=== PATIENT | female | born 1955 | race Caucasian/White ===

== ENCOUNTER 2023-09-13 14:21 | Emergency (ER) | payer BC, SELFPAY ==
[2023-09-13 14:36] VITALS: BP 156/97; PULSE 86; RESP 16; TEMP 36.2; O2SAT 98; BMI 23.3
[2023-09-13] MEDS: lidocaine HCL 2 % MULTIDOSE 20 ML VIAL INJECTION (14:50)
--- OUTSIDE RECORDS SUMMARY | 2023-09-13 14:51 | XMS_ITS | Encounter Summary ---
Author Organization [facility] Address [address], [place] [address] Care Team Providers Care Drier Tender Name Role Phone Princess Mckeon MD Primary Care Provider [phone]- [phone] Reason for Referral * Consult/Transfer Care (Routine) - New Request Specialty Diagnoses / Procedures Referred By Rylee kennedy Referred To Contact Diagnoses Atypical nevus Anusha Sheth MD [address] [place] [address] Referral ID Status Reason Start Date Expiration Date V isits Requested Visits Authorized [id number] New Request 06/02/2023 08/31/2024 1 1 Scheduling Instructions Your provider has recommended an appointment with [facility] Plastic Surgery. You may call [phone] for help scheduling your appointment. We suggest you call your health insurance company about your coverage and benefits for this appointment. Question Answer Appointment Urgency? Non-Urgent Reason for visit? re-excision of AJMP - on the left lower leg posterior ON INVESTIGATOR Encounter Details Date Type Department Care Team (Late st Contact Info) Description 06/02/2023 Notes/Orders [facility] Dermatology [address], [address] [place] [address] Anusha Sheth MD [address] [place] [address] Atypical nevus (Primary Dx) Social History Tobacco Use Types Packs/Day Years Used Date Smoking Tobacco: Never Smokeless Tobacco: Never Alcohol Use Standard Drinks/Week Comments Yes 11 (1 standard drink = 0.6 oz pure alcohol) 1-2 glasses of wine wiith dinner PHQ-2 Answer Date Recorded PHQ-2 Score 0 03/21/2022 Financial Resource Strain Answer Date R ecorded Is it hard for you to pay fo r the very basics like food, housing, medical care or heating? No 03/03/2023 Food Insecurity Answer Date Recorded Does your food run out before you have the money to buy more? No 03/03/2023 Transportation Needs Answer Date Record ed Does a lack of transportatio n keep you from your medical appointments or from getting your medications? No 023 Sex and Gender Information Value Date Recorded Sex Assigned at Not on file Gender Identity Not on file Sexual Orientation Choose not to disclose 2020 6:35 PM CDT documented as of this encounter Plan of Treatment Upcoming Encounters Date Type Department Care Team (Late st Contact Info) Description 05/25/2024 10:15 AM PERSON INVESTIGATOR Appointment [facility] [address] [place] [address] Tanvi Sarabia MD [address] [place] [address] Scheduled Referrals Name Type Priority Associated Diagnoses Orde r Schedule Plastic Surgery Consult-Adult/Peds Referral Routine Atypical nevus Ordered: 06/02/2023 documented as of this encounter Visit Diagnoses Diagnosis Atypical nevus- Primary Benign neoplasm of skin, site unspecified documented in this encounter Care Teams Drier Tender Relationship Specialty Start Date End Date Princess Mckeon MD [address] [place] [phone] PCP - General 03/02/13 documented as of this encounter
--- OUTSIDE RECORDS SUMMARY | 2023-09-13 14:51 | XMS_ITS | Encounter Summary ---
Author Organization [facility] Address [address] [address] Care Team Providers Care Inventory Auditor Name Role Phone Princess Mckeon MD Primary Care Provider +1- [phone] Encounter Details Date Type Department Care Team (Late st Contact Info) Description 07/20/2023 Notes/Orders [facility] Center Gastroenterology [address] [place] [address] Camila Perkins MD [address] [place], [place] [id number] Social History Tobacco Use Types Packs/Day Years [...] st Contact Info) Description 05/25/2024 10:15 AM CARDIAC CATH TECH Appointment [facility] [address] [place] [address] Tanvi Sarabia MD [address] [place] [address] documented as of this encounter Visit Diagnoses Not on filedocumented in this encounter Care Teams Inventory Auditor Relationship Specialty Start Date End Date Princess Mckeon MD [address] [place] [phone] PCP - General 03/02/13 documented as of this encounter
--- OUTSIDE RECORDS SUMMARY | 2023-09-13 14:51 | XMS_ITS | Encounter Summary ---
Author Organization [facility] Address [address], [place] [address] Care Team Providers Care Phd Internship Name Role Phone Princess Mckeon MD Primary Care Provider [phone]- [phone] Reason for Visit * Reason Comments Procedure Excision lesion L an kle * Consult/Transfer Care (Routine) - New Request Specialty Diagnoses / Procedures Referred By Rylee kennedy Referred To Contact Diagnoses Atypical nevus Anusha Sheth MD [address] [place] [id number] Referral ID Status Reason Start Date Expiration Date V isits Requested Visits Authorized [id number] New Request 06/02/2023 08/31/2024 1 1 Encounter Details Date Type Department Care Team ([facility] st Contact Info) Description 07/06/2023 10:30 AM CDT Office Visit [facility] [address], [address] [place], [place] [phone] Kurt Langley MD [address] [place] [address] 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 Wound Care Instructions After a Skin Biopsy or Excision FOLLOW UP: No need for clinic follow up. TREATMENT PLAN: If the wound begins to bleed, apply firm, continual pressure to the area for 15- 20 minutes. Keep the wound dry and covered for 24 hours. The wound was closed with dissolvable sutures. Your skin may have a puckered appearance while they are dissolving over the next few weeks. Steri strips (paper tape) were placed on your incision; please keep them in place until your followup for suture removal or until the fall off on their own. If Steri strips start to peel off on the edges, you may trim them. When Steri strips become loose, you may gently remove them. May rep-apply if you desire to do so. After removing the initial bandage, clean the area daily with soap and water and pat dry thoroughly. Do not soak your incision (no dishes, hot tubs, no swimming pools). Do not apply creams or lotionsto your incision until area is healed with no scabbing or open areas. Cover the area with a clean bandage; if desire to do so. Always change the bandage if it becomes wet. If the bandage becomes wet, it is more apt to become infected. If a specimen has been sent to the pathology lab. We will call you with results in 7-10 business days. Avoid strenuous activities for 24-72 hours. Recommend to elevate the foot as much as you can for the next 48 hours. Elevation can help reduce pain and swelling. Please be mindful of any range of motion of the ankle for the next 2 weeks. Julio Cesar wrap or compression to the area Inspect the wound every day for infection. Signs of infection are: Cloudy or colored (yellow/green) drainage from wound. Redness extending away for the incision (a small amount at the edge is normal), or red streaks extending from the incision. Increasing tenderness Swelling Fever or chills If you notice signs of infection, or have questions, call our office at [phone]. For minor discomfort, you may take Tylenol, Motrin or Advil, as well as apply ice to the area for 10-15 minutes per hour and/or elevating the area. SCAR TREATMENTS Silicone Scar Sheets and Scar Serum You may begin using ScarAway?? (or a similar silicone product) as soon as the skin is healed and there is no oozing or crusting in the area. Treatment with silicone products for post-surgical scars may typically begin approximately 1-2 weeks after stitches are removed or when cleared by your physician or surgeon for use. Research suggests that silicone acts to hydrate scar tissue, which in turn works to soften the scar, reducing its development and causing it to fade. Treatment duration will vary from person to person and from scar to scar, depending on many factors. Recommended Minimum treatment time is 60-90 days. Larger and older scars may take longer, therefore continued use is recommended if improvement is still seen after the initial 90 days. Individual results will vary. Scar Recovery Gel by [employer] is another scar care option. This formulized gel helps hydrate andfade scars by decreasing inflammation at the site. It is recommended that you apply a thin coat at least twice daily. This product can be purchased at our [facility] Plastic & Hand Surgery and Cosmetic Surgery clinics. Pure Vitamin E Oil You can buy a bottle of Vitamin E Oil or you may also buy Vitamin E Gel Caps. Both should be applied topically to scar areas. *Test on a small area of skin first. These are all ways to help promote scar maturity. CARING FOR YOUR SCAR(S) You must wear sunscreen daily (yes, even on a cloudy winter day) to protect your skin from damagingand harmful ultraviolet or UV rays. UV rays cause premature skin aging, skin cancer, and sun-related skin diseases. We recommend using sunscreen with a SPF rating of 30 or higher. Your sunscreen should contain 5%+ zinc oxide. Apply sunscreen 15-30 minutes before expected prolonged direct sun exposure, reapply sunscreen every 2 hours. How to use Sunscreen One ounce, enough to fill a shot glass, is considered the amount needed to cover the exposed areas of the body. Adjust the amount of sunscreen applied depending on body size. Apply sunscreen to dry skin 15 minutes BEFORE going outdoors. To protect your lips, apply a lip balm or lipstick that contains Zinc Oxide with an SPF of 30 or higher. Physical blocks to sun rays including clothing and hats can also be an effective method of blockingUV rays. In general avoiding prolonged sun exposure is the best protection. After a surgical procedure, the incision is very sensitive to UV rays and we recommend additional protection with sunscreen above what you usually use for up to 12 months. This can help to prevent hyperpigmentation (darkening) of the scar A few sunscreens we have available in the clinic are EltaMD and [employer]cience. These are safe, broad-spectrum UV protection in natural zinc-based and are noncomedogenic, sensitivity-free, fragrance-free and paraben-free. EltaMD and [employer]orescience sunscreen may also be purchased in the Plastic and Hand Surgery clinic at [facility] ([phone]), or at the [facility] Plastic Surgery clinic in [place] ([phone]). Elta[employer] sunscreens are designed for the following skin types: UV Facial Lotion SPF 30: dry or mature skin UV Daily SPF 40: sheer moisturizing UV Daily SPF 40 tint: sheer moisturizing UV Shield SPF 45: oily skin UV Sport SPF 50: outdoor activities UV PURE: Chemical free for face and body UV Aero: Continuous spray for outdoor activities [employer] sunscreens are high performing mineral sunscreen brushes that are self-dispensing andeasy to use for all skin types. 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 Risks and benefits of the procedure were reviewed with the patient which include but not limited to bleeding, poor wound healing/scarring, and requirement for re-excision. PROCEDURE: The lesion (7 mm) was identified on the patient's left lateral ankle and marked with at least 2 mm of additional margins in all dimensions. The total size of the excised lesion with margins was 11 x 30 mm. This area was anesthetized with 1% lidocaine with epinephrine. Adequate time was allowed for hemostasis. The area was then sterilely prepped with chlorhexidine and draped. After ensuring that the patient was adequately numb, the lesion was excised with a 15 blade. Electrocautery was used to control any bleeding. The defect was then closed with 3-0 Monocryl for deep dermal stitches and 4-0 Monocryl for a running subcuticular stitch. The total closure measured 30 mm in the greatest dimension. Kurt Langley MD-PhD documented in this encounter Plan of Treatment Upcoming Encounters Date Type Department Care Team (Late st Contact Info) Description 05/25/2024 10:15 AM EDUCATIONAL INTERPRETER Appointment [place] [address] [place] [address] Tanvi Sarabia MD [address] [place] [id number] documented as of this encounter Procedures Procedure Name Priority Date/Time Associated Diagnosis Comments SURGICAL PATHOLOGY Routine 07/06/2023 11 :54 AM CDT Atypical nevus of left lower leg documented in this encounter Results * Surgical Path (07/06/2023 11:54 AM CDT) Case Report Surgical Pathology ?Case: [id number] ? Authorizing Provider: ??Kurt Langley MD ?Collected: ? 07/06/2023 1154 ? Ordering Location: ? [facility] ? Received: ?07/06/2023 1932 ? Surgeons ? Pathologist: ? Mayelin Kendrick MD ? Specimen: ?Leg, left, lower posterior; suture 12 o'clock ? 07/09/2023 10:42 AM [facility] FINAL DIAGNOSIS A. Skin, Leg, left, lower posterior, re-excision : Central biopsy site changes, narrowly excised, negative for residual atypical junctional melanocytic proliferation 07/09/2023 10:42 AM [facility] Clinical Information lesion Per Dr. Langley's note on 07/06/23, this is a re-excision of an atypical junctional melanocytic proliferation ([id number]). 07/09/2023 10:42 AM [facility] Microscopic Description Microscopic examination is performed. 07/09/2023 10:42 AM [facility] Gross Description A: The specimen is received in formalin and labeled with the patient's name and Leg, left, lower posterior; suture 12 o'clock. The specimen consists of an oriented (stitch at 12:00) 2 x 0.9 cm pale-rojas skin ellipse is excised to a depth of 0.2 cm. The skin surface exhibits a 0.3 x 0.3 cm pink-rojas, crusty lesion on the surface. The lesion comes within 0.1 cm to the 3:00 margin, 0.3 cm to the 9:00 margin, 0.8 cm to the 12:00 tip and 0.9 cm to the 6:00 tip. The 3:00 aspect is inked blue and the 9:00 aspect is inked black. The specimen is serially sectioned entirely and sequentially submitted from 12:00 to 6:00 in 4 cassettes. 1. 12:00 tip 2-3. Remaining serial sections submitted from 12:00 to 6:00 4. 6:00 tip. 07/09/2023 10:42 AM [facility] Embedded Images 07/09/2023 10:42 AM [facility] Tissue SKIN OF KNEE AND/OR LEG AND/OR ANKLE / Unknown Non-blood Collection / Unknown 07/06/2023 11:54 AM CDT 07/06/2023 7:32 PM CDT Comment:per standing Vicente De Luna, BARBERING INSTRUCTOR 07/06/2023, 11:50 AM Kurt Langley MD LAB PATHOLOGY [address] [address], [facility] documented in this encounter Visit Diagnoses Diagnosis Atypical nevus of left lower leg- Primary documented in this encounter Care Teams Phd Internship Relationship Specialty Start Date End Date Princess Mckeon MD [address] [facility] [place] [phone] PCP - General 03/02/13 documented as of this encounter
--- OUTSIDE RECORDS SUMMARY | 2023-09-13 14:51 | XMS_ITS | Encounter Summary ---
Author Organization [facility] Address [address] [place] [address] Care Team Providers Care Campus Chaplain Name Role Phone Princess Mckeon MD Primary Care Provider [phone]- [phone] Encounter Details Date Type Department Care Team (Latest Contact Info) Description 08/05/2023 9:30 AM CDT - 08/05/2023 11:59 PM CDT Hospital Encounter [facility] [address] [place] [address] Camila Perkins MD [address], [place] [id number] Screen for colon cancer (Primary Dx) Discharge Disposition: Home Social History Tobacco Use Types Packs/Day Years [...] PM CDT documented as of this encounter Last Filed Vital Signs Vital Sign Reading Time Taken Comments Blood Pressure 106/68 08/05/2023 10:35 AM CDT Pulse 62 08/05/2023 10:35 AM CDT Temperature 36.2 ??C (97.2 ??F) 08/05/2023 10:13 AM C DT Respiratory Rate 11 08/05/2023 10:35 AM CDT Oxygen Saturation 97% 08/05/2023 10:35 AM CDT Inhaled Oxygen Concentration - - Weight 63.5 kg (140 lb) 08/05/2023 9:00 AM CDT Height - - Body Mass Index 23.66 03/04/2023 2:01 PM LINE FISHER documented in this encounter Discharge Instructions * Attachments The following attachments cannot be sent through Care Everywhere. * Hemorrhoids (Barbadian) * Diverticulosis (Barbadian) * Fiber Foods: General Info (Barbadian) * High-Fiber Diet (Barbadian) documented in this encounter Medications at Time of Discharge Medication Sig Dispensed Refills Start Date End Date Calcium Carbonate-Vitamin D (CALTRATE 600+D OR) Take 300 mg by mouth daily (every 24 hours). 03/28/2014 cholecalciferol (VITAMIND3) 2000 UNITS tablet Take 1 Tablet (2,000 Units) by mouth daily. Glucosamine HCl-MSM (GLUCOSAMINE-MSM OR) Take by mouth. 03/10/2012 documented as of this encounter Progress Notes * Camila Perkins MD - 08/05/2023 9:30 AM CDT CC: Colonoscopy HPI: Patient here for colonoscopy. Clinically asymptomatic. History and Physical PMH: Reviewed PSH: Reviewed Social Hx: Reviewed Allergies: Reviewed Medications: Reviewed Family History: Reviewed Review of Systems: Pertinent ROS done. Exam: Alert, awake and oriented. Vitals: See documentation flowsheet. Pre-Sedation Assessment Head and Neck: Examined Chest: Clear to auscultation. No wheezes or rales. CVS: Regular, rate, rhythm. Abdomen: Abdomen soft, non-tender without masses or organomegaly. Extremities: Examined Hx sedation/anesthesia reaction: No Airway abnormal: No Mallampati Score: 1 ASA: P1 A normal healthy patient Plan: Colonoscopy under moderate sedation Supervising provider: Potential risks and complications of procedure have been discussed with patient. Consent obtained prior to procedure. 08/05/2023, 9:53 AM documented in this encounter Procedure Notes * Camila Perkins MD - 08/05/2023 9:40 AM CDT Patient Name: Carolynn Arvizu Procedure Date: 08/05/2023 9:40 AM Date of : 1955 Age: 68 Gender: Female Note Status: Finalized Instrument Name: 186 Procedure: Colonoscopy Indications: Screening for colorectal malignant neoplasm Providers: Camila Perkins MD, Idalia Smith Patient Profile: 68 y/o F here for 10 year follow up, no FH of colon cancer. Adelina Bowel Prep Referring MD: Medicines: Midazolam 2 mg IV, Fentanyl 100 micrograms IV, Ondansetron 4 mg IV Complications: No immediate complications. Procedure: Pre-Anesthesia Assessment: - Prior to the procedure, a History and Physical was performed, and patient medications and allergies were reviewed. The patient is competent. The risks and benefits of the procedure and the sedation options and risks were discussed with the patient. All questions were answered and informed consent was obtained. Patient identification and proposed procedure were verified by the physician in the procedure room. Mental Status Examination: alert and oriented. Airway Examination: normal oropharyngeal airway and neck mobility. Respiratory Examination: clear to auscultation. CV Examination: normal. Prophylactic Antibiotics: The patient does not require prophylactic antibiotics. Prior Anticoagulants: The patient has taken no anticoagulant or antiplatelet agents. ASA Grade Assessment: I - A normal, healthy patient. After reviewing the risks and benefits, the patient was deemed in satisfactory condition to undergo the procedure. The anesthesia plan was to use moderate sedation / analgesia (conscious sedation). Immediately prior to administration of medications, the patient was re-assessed for adequacy to receive sedatives. The heart rate, respiratory rate, oxygen saturations, blood pressure, adequacy of pulmonary ventilation, and response to care were monitored throughout the procedure. The physical status of the patient was re-assessed after the procedure. After I obtained informed consent, the scope was passed under direct vision. Prior to sedation, patient identity and procedure was reverified. Throughout the procedure, the patient's blood pressure, pulse, and oxygen saturations were monitored continuously. The Colonoscope was introduced through the anus and advanced to the cecum, identified by appendiceal orifice and ileocecal valve. The colonoscopy was performed without difficulty. The patient tolerated the procedure well. The quality of the bowel preparation was excellent. Findings: Hemorrhoids were found on perianal exam. A few small-mouthed diverticula were found in the ascending colon. Non-bleeding internal hemorrhoids were found during retroflexion. The hemorrhoids were mild. Moderate Sedation: Moderate (conscious) sedation was personally administered by the endoscopist. The following parameters were monitored: oxygen saturation, heart rate, blood pressure, and response to care. Total physician intraservice time was 13 minutes. Impression: - Hemorrhoids found on perianal exam. - Diverticulosis in the ascending colon. - Non-bleeding internal hemorrhoids. - No specimens collected. Recommendation: - Repeat colonoscopy in 10 years for surveillance. - High fiber diet Procedure Code(s): --- Professional --- 02867, Colonoscopy, flexible; diagnostic, including collection of specimen(s) by brushing or washing, when performed (separate procedure) G0500, Moderate sedation services provided by the same physician or other qualified health caretaker grounds performing a gastrointestinal endoscopic service that sedation supports, requiring the presence of an independent trained observer to assist in the monitoring of the patient's level of consciousness and physiological status; initial 15 minutes of intra-service time; patient age 5 years or older (additional time may be reported with 16950, as appropriate) Diagnosis Code(s): --- Professional --- Z12.11, Encounter for screening for malignant neoplasm of colon K64.8, Other hemorrhoids K57.30, Diverticulosis of large intestine without perforation or abscess without bleeding CPT copyright 2021 [employer]. All rights reserved. The codes documented in this report are preliminary and upon service center assistant review may be revised to meet current compliance requirements. Attending Participation: MD Camila De Oliveira MD 08/05/2023 10:14:45 AM This report has been signed electronically. Number of Addenda: 0 Note Initiated On: 08/05/2023 9:40 AM documented in this encounter Plan of Treatment Upcoming Encounters Date Type Department Care Team (Late st Contact Info) Description 05/25/2024 10:15 AM LINE FISHER Appointment [facility] [address] [place] [address] Tanvi Sarabia MD [address] [place], [place] [id number] documented as of this encounter Procedures Procedure Name Priority Date/Time Associated Diagnosis Comments COLONOSCOPY Routine 08/05/2023 9:40 AM CDT Screen for colon cancer documented in this encounter Results * COLONOSCOPY [[id number]] (08/05/2023 9:40 AM CDT) 08/05/2023 9:40 AM CDT Narrative GI ([facility]) - 08/05/2023 10:14 AM CDT Instrument Name: 186 Indications: ? Screening for colorectal malignant neoplasm Providers: ? Camila Perkins MD, Sarah Jeffrey, ? Idalia Chavez Patient Profile: ? 68 y/o F here for 10 year follow up, no FH of colon ? cancer. Golytely Bowel Prep Referring MD: ? Medicines: ? Midazolam 2 mg IV, Fentanyl 100 micrograms IV, ? Ondansetron 4 mg IV Complications: ? No immediate complications. Procedure: ? Pre-Anesthesia Assessment: ? - Prior to the procedure, a History and Physical ? was performed, and patient medications and ? allergies were reviewed. The patient is competent. ? The risks and benefits of the procedure and the ? sedation options and risks were discussed with the ? patient. All questions were answered and informed ? consent was obtained. Patient identification and ? proposed procedure were verified by the physician ? in the procedure room. Mental Status Examination: ? alert and oriented. Airway Examination: normal ? oropharyngeal airway and neck mobility. Respiratory ? Examination: clear to auscultation. CV Examination: ? normal. Prophylactic Antibiotics: The patient does ? not require prophylactic antibiotics. Prior ? Anticoagulants: The patient has taken no ? anticoagulant or antiplatelet agents. ASA Grade ? Assessment: I - A normal, healthy patient. After ? reviewing the risks and benefits, the patient was ? deemed in satisfactory condition to undergo the ? procedure. The anesthesia plan was to use moderate ? sedation / analgesia (conscious sedation). ? Immediately prior to administration of medications, ? the patient was re-assessed for adequacy to receive ? sedatives. The heart rate, respiratory rate, oxygen ? saturations, blood pressure, adequacy of pulmonary ? ventilation, and response to care were monitored ? throughout the procedure. The physical status of ? the patient was re-assessed after the procedure. ? After I obtained informed consent, the scope was ? passed under direct vision. Prior to sedation, ? patient identity and procedure was reverified. ? Throughout the procedure, the patient's blood ? pressure, pulse, and oxygen saturations were ? monitored continuously. The Colonoscope was ? introduced through the anus and advanced to the ? cecum, identified by appendiceal orifice and ? ileocecal valve. The colonoscopy was performed ? without difficulty. The patient tolerated the ? procedure well. The quality of the bowel ? preparation was excellent. Findings: ? Hemorrhoids were found on perianal exam. ? A few small-mouthed diverticula were found in the ascending colon. ? Non-bleeding internal hemorrhoids were found during retroflexion. The ? hemorrhoids were mild. Moderate Sedation: ? Moderate (conscious) sedation was personally administered by the ? endoscopist. The following parameters were monitored: oxygen ? saturation, heart rate, blood pressure, and response to care. Total ? physician intraservice time was 13 minutes. Impression: ?- Hemorrhoids found on perianal exam. ? - Diverticulosis in the ascending colon. ? - Non-bleeding internal hemorrhoids. ? - No specimens collected. Recommendation: ?- Repeat colonoscopy in 10 years for surveillance. ? - High fiber diet Procedure Code(s): ? --- Professional --- ? 36338, Colonoscopy, flexible; diagnostic, including ? collection of specimen(s) by brushing or washing, ? when performed (separate procedure) ? G0500, Moderate sedation services provided by the ? same physician or other qualified health care ? professional performing a gastrointestinal ? endoscopic service that sedation supports, ? requiring the presence of an independent trained ? observer to assist in the monitoring of the ? patient's level of consciousness and physiological ? status; initial 15 minutes of intra-service time; ? patient age 5 years or older (additional time may ? be reported with 25858, as appropriate) Diagnosis Code(s): ? --- Professional --- ? Z12.11, Encounter for screening for malignant ? neoplasm of colon ? K64.8, Other hemorrhoids ? K57.30, Diverticulosis of large intestine without ? perforation or abscess without bleeding CPT copyright 2021 [employer]. All rights reserved. The codes documented in this report are preliminary and upon service center assistant review may be revised to meet current compliance requirements. Attending Participation: MD Camila De Oliveira MD 08/05/2023 10:14:45 AM This report has been signed electronically. Number of Addenda: 0 Note Initiated On: 08/05/2023 9:40 AM Procedure Note Camila Perkins MD - 08/05/2023 Instrument Name: 186 Indications: Screening for colorectal malignant neoplasm Providers: Camila Perkins MD, Idalia Smith Patient Profile: 68 y/o F here for 10 year follow up, no FH of colon cancer. Adelina Bowel Prep Referring MD: Medicines: Midazolam 2 mg IV, Fentanyl 100 micrograms IV, Ondansetron 4 mg IV Complications: No immediate complications. Procedure: Pre-Anesthesia Assessment: - Prior to the procedure, a History and Physical was performed, and patient medications and allergies were reviewed. The patient is competent. The risks and benefits of the procedure and the sedation options and risks were discussed with the patient. All questions were answered and informed consent was obtained. Patient identification and proposed procedure were verified by the physician in the procedure room. Mental Status Examination: alert and oriented. Airway Examination: normal oropharyngeal airway and neck mobility. Respiratory Examination: clear to auscultation. CV Examination: normal. Prophylactic Antibiotics: The patient does not require prophylactic antibiotics. Prior Anticoagulants: The patient has taken no anticoagulant or antiplatelet agents. ASA Grade Assessment: I - A normal, healthy patient. After reviewing the risks and benefits, the patient was deemed in satisfactory condition to undergo the procedure. The anesthesia plan was to use moderate sedation / analgesia (conscious sedation). Immediately prior to administration of medications, the patient was re-assessed for adequacy to receive sedatives. The heart rate, respiratory rate, oxygen saturations, blood pressure, adequacy of pulmonary ventilation, and response to care were monitored throughout the procedure. The physical status of the patient was re-assessed after the procedure. After I obtained informed consent, the scope was passed under direct vision. Prior to sedation, patient identity and procedure was reverified. Throughout the procedure, the patient's blood pressure, pulse, and oxygen saturations were monitored continuously. The Colonoscope was introduced through the anus and advanced to the cecum, identified by appendiceal orifice and ileocecal valve. The colonoscopy was performed without difficulty. The patient tolerated the procedure well. The quality of the bowel preparation was excellent. Findings: Hemorrhoids were found on perianal exam. A few small-mouthed diverticula were found in the ascending colon. Non-bleeding internal hemorrhoids were found during retroflexion. The hemorrhoids were mild. Moderate Sedation: Moderate (conscious) sedation was personally administered by the endoscopist. The following parameters were monitored: oxygen saturation, heart rate, blood pressure, and response to care. Total physician intraservice time was 13 minutes. Impression: - Hemorrhoids found on perianal exam. - Diverticulosis in the ascending colon. - Non-bleeding internal hemorrhoids. - No specimens collected. Recommendation: - Repeat colonoscopy in 10 years forsurveillance. - High fiber diet Procedure Code(s): --- Professional --- 12007, Colonoscopy, flexible; diagnostic, including collection of specimen(s) by brushing or washing, when performed (separate procedure) G0500, Moderate sedation services provided by the same physician or other qualified health caretaker grounds performing a gastrointestinal endoscopic service that sedation supports, requiring the presence of an independent trained observer to assist in the monitoring of the patient's level of consciousness and physiological status; initial 15 minutes of intra-service time; patient age 5 years or older (additional time may be reported with 45785, as appropriate) Diagnosis Code(s): --- Professional --- Z12.11, Encounter for screening for malignant neoplasm of colon K64.8, Other hemorrhoids K57.30, Diverticulosis of large intestine without perforation or abscess without bleeding CPT copyright 2021 [employer]. All rights reserved. The codes documented in this report are preliminary and upon service center assistant review may be revised to meet current compliance requirements. Attending Participation: MD Camila De Oliveira MD 08/05/2023 10:14:45 AM This report has been signed electronically. Number of Addenda: 0 Note Initiated On: 08/05/2023 9:40 AM Camila Perkins MD [facility] [place], [place] documented in this encounter Visit Diagnoses Diagnosis Screen for colon cancer- Primary Special screening for malignant neoplasms, colon documented in this encounter Administered Medications Inactive Administered Medications - up to 3 most recent administrations Medication Order MAR Action Action Date Dose Rate Site fentaNYL (SUBLIMAZE) injection 25-100 mcg 25-100 mcg, Intravenous, PRN WITH PROCEDURES, Sedation, Procedure, Starting on Thu08/05/23 at 0925, Until Thu08/05/23 at 1324, For 4 hours, Administer in 25-100 mcg increments as directed by endoscopy procedure practitioner up to a total of 300 mcg (Give only during endoscopy procedure visit). Given 08/05/2023 9:54 AM CDT 100 mcg midazolam (VERSED) injection 0.5-2 mg 0.5-2 mg, Intravenous, PRN WITH PROCEDURES, Sedation, Procedure, Starting on Thu08/05/23 at 0925, Until Thu08/05/23 at 1324, For 4 hours, Administer in 0.5-2 mg increments as directed by endoscopy procedure practitioner up to a total of 8 mg (Give only during endoscopy procedure visit). Given 08/05/2023 9:54 AM CDT 2 mg ondansetron (ZOFRAN) injection 4 mg 4 mg, Intravenous, Q30MIN PRN, Nausea, Starting on Thu08/05/23 at 0925, Until Thu08/05/23 at 1324, For 4 hours, May give IV or PO ondansetron not both. Limit IV x 2 doses Given 08/05/2023 9:54 AM CDT 4 mg documented in this encounter Care Teams Campus Chaplain Relationship Specialty Start Date End Date Princess Mckeon MD [address] [place] [phone] PCP - General 03/02/13 documented as of this encounter
--- OUTSIDE RECORDS SUMMARY | 2023-09-13 14:51 | XMS_ITS | Encounter Summary ---
Author Organization [facility] Address [address] [place] [address] Care Team Providers Care Yard Supervisor Name Role Phone Princess Mckeon MD Primary Care Provider [phone]- [phone] Encounter Details Date Type Department Care Team (Late st Contact Info) Description 07/22/2023 E-Visit [facility] Gastroenterology [address] [place] [address] Mychart, [place] [address] Social History Tobacco Use Types Packs/Day Years [...] st Contact Info) Description 05/25/2024 10:15 AM DIRECTOR OF VOCATIONAL GUIDANCE Appointment [facility] [address] [place] [address] Tanvi Sarabia MD [address] [place] [address] documented as of this encounter Visit Diagnoses Not on filedocumented in this encounter Care Teams Yard Supervisor Relationship Specialty Start Date End Date Princess Mckeon MD [address] [place] [phone] PCP - General 03/02/13 documented as of this encounter
--- OUTSIDE RECORDS SUMMARY | 2023-09-13 14:51 | XMS_ITS | Clinical Summary ---
Author Organization [facility] Address [address] [place] [address] Care Team Providers Care Head Buyer Tobacco Name Role Phone Princess Mckeon MD Primary Care Provider [phone] Source Comments You are receiving this document as you are listed as the primary care provider,follow-up provider, or the patient has been referred to you for consultation.This is in compliance with the Medicare and[facility] E[facility] Incentive Program,which states Providers who transition their patient to another setting of careor provider of care or refers their patient to another provider of care shouldprovide summary care record for each transition of care or referral. [facility] Allergies Active Allergy Reactions Criticality Noted Date Comments Morphine Nausea And Vomiting Medium 11/08/2012 Other 02/01/2008 PN: LW Other1: -all narcotics-ill Medications Medication Sig Dispensed Refills Start Date End Date Status Glucosamine HCl-MSM (GLUCOSAMINE-MSM OR) Take by mouth. 03/10/2012 Active Calcium Carbonate-Vitamin D (CALTRATE 600+D OR) Take 300 mg by mouth daily (every 24 hours). 03/28/2014 Active cholecalciferol (VITAMIND3) 2000 UNITS tablet Take 1 Tablet (2,000 Units) by mouth daily. Active Active Problems Problem Noted Date Diagnosed Date S/P colonoscopy 03/29/2015 Overview: 2013 repeat 2023 Renal mass, left 11/03/2014 Overview: Urology consult 2022, repeat ultrasound 2027 Primary localized osteoarthrosis, lower leg 10/19 Resolved Problems Problem Noted Date Diagnosed Date Resolved Date Knee MCL sprain 11/08/2012 12/17/2020 Encounters Date Type Department Care Team Description 08/05/2023 9:30 AM CDT - 08/05/2023 11:59 PM CDT Hospital Encounter [facility] [address] [place] [address] Camila Perkins MD Screen for colon cancer (Primary Dx) Discharge Disposition: Home 07/22/2023 E-Visit [facility] [address] [place] [address] Mychart, Generic Provider 07/20/2023 Notes/Orders [facility] [address] [place] [id number] Camila Perkins MD 07/06/2023 10:30 AM CDT Office Visit [facility] [address], [address] [place] [address] Kurt Langley MD Atypical nevus of left lower leg (Primary Dx) from Last 3 Months Immunizations Name Administration Dates Next Due Flu Vac (3+ yrs) 03/10/2012,03/05/2011 Flu Vac Preserv Free (3+yrs) 03/10/2012, 03/05/2011,02/13/2010,2008,02/01/2008 HepA Adult (19+ yrs) 02/27/2017,08/04/2016 Influenza (Flucelvax), Prese rv Free QIV 01/01/2022 Influenza (Fluzone 0.25, 6-35 mos) 03/23/2013 Influenza IIV4 (Quadrivalent ) 0.5mL (19846) 02/14/2021,02/15/2020,02/09/2018,2016,01/11/2016,03/29/2015,03/28/2014,1 05/24/2012 Influenza IIV4 (Quadrivalent ) Fluad, 65+ Yrs 02/10/2023 Influenza, Unspecified Formulation 03/04,02/13/2010,02/02/2009,2007 PCV20 ([id number]) 03/21/2022 Pfizer 12+ 03/04/2023 Pfizer Bivalent 12+ 11/26/2022,01/01/2022 Pfizer Monovalent 12+ Purple Top 04/09/2021,07/20,07/26/2020 TDAP (BOOSTRIX) 02/02/2009 Td (7+ yrs) 04/04/2019 Tdap 02/02/2009 Typhoid (Vivotif, Oral) 08/04/2016 Family History Medical History Relation Name Comments Cancer Father Donn multiple myelom a High Cholesterol Father Donn Arthritis Mother Carmen two hip replace ments, shoulder replacement Cancer Mother Carmen Cancer, Breast Mother Carmen 50s Cancer, Pancreatic Mother Carmen Dementia Mother Carmen High Cholesterol Mother Carmen Osteoporosis Mother Carmen Hyperlipidemia Other both parents Arthritis Sister Relation Name Status Comments Father Donn (Age 83) Mother Carmen pre glaucoma, b leeding ulcer Brother Alive chronic back pa in Other Sister Alive Social History Tobacco Use Types Packs/Day Years [...] not to disclose 2020 6:35 PM CDT Last Filed Vital Signs Vital Sign Reading Time Taken Comments Blood Pressure 106/68 08/05/2023 10:35 AM CDT Pulse 62 08/05/2023 10:35 AM CDT Temperature 36.2 ??C (97.2 ??F) 08/05/2023 10:13 AM C DT Respiratory Rate 11 08/05/2023 10:35 AM CDT Oxygen Saturation 97% 08/05/2023 10:35 AM CDT Inhaled Oxygen Concentration - - Weight 63.5 kg (140 lb) 08/05/2023 9:00 AM CDT Height 163.8 cm (5' 4.5) 03/04/2023 2:01 PM [employer] Body Mass Index 23.66 03/04/2023 2:01 PM [employer] Plan of Treatment Upcoming Encounters Date Type Department Care Team (Late st Contact Info) Description 05/25/2024 10:15 AM [employer] Appointment [place] [address] [facility] [address] [place], [place] [phone] Tanvi Sarabia MD [address] [place], [place] [id number] Health Maintenance Due Date Last Done Comments Medicare Annual Wellness Visit 03/21/2023 03/21/2022 COVID-19 Vaccine ( season) 2023 03/04/2023, 11/26/2022, 01/01/2022, Additional history exists Zoster/Shingles (2 of 2) 09/07/2023 07/13/2023 Mammogram 05/20/2024 05/20/2023, 04/20, 02/28/2021, Additional history exists Cholesterol 03/06/2028 03/06/2023, 08/3 04/2020, 12/15/2019, Additional history exists DTaP/Tdap/Td (4 - Tdap) 04/04/2029 04/04/20, 02/02/2009, 02/02/2009 Colonoscopy 08/04/2033 08/05/2023, 06/18 (Completed), 07/21/2008 Hep C Screening (Preventive Services) Completed 01/11/2016 HepA Completed 02/27/2017, 08/04/2016 Cervical Cancer Screening Discontinued 04/07/2018, 01/2015 Dexa Completed 07/19/2018 Pneumococcal 65+ Yrs Completed 03/21/2022 Influenza Completed 02/10/2023, 12/19, 02/14/2021, Additional history exists HepB Aged Out No longer eligi ble based on patient's age to complete this topic Hib Aged Out No longer eligi ble based on patient's age to complete this topic IPV (Polio) Aged Out No longer eligi ble based on patient's age to complete this topic MCV4 Aged Out No longer eligi ble based on patient's age to complete this topic Procedures Procedure Name Priority Date/Time Associated Diagnosis Comments COLONOSCOPY Routine 08/05/2023 9:40 AM CDT Screen for colon cancer SURGICAL PATHOLOGY Routine 07/06/2023 11 :54 AM CDT Atypical nevus of left lower leg MAMMOGRAM SC 05/20/2023 LIPID PANEL & DIRECT LDL (IF NEEDED) Routine 03/06/2023 1:57 PM [employer] Lipid screening DXA BONE DENSITY SPINE/HIP Routine 07/19/2018 11:35 AM CDT Post-menopausal ANATOMICAL PATH LIQUID BASED Routine 04/07/2018 11:51 AM [employer] HEPATITIS C ANTIBODY, WITH REFLEX Routine 01/11/2016 8:15 AM CDT Need for hepatitis C screening test from Last 3 Months or Most Recently Relevant to Health Maintenance Results * COLONOSCOPY [[id number]] (08/05/2023 9:40 AM CDT) 08/05/2023 9:40 AM [...] Procedure Code(s): ? --- Professional --- ? 77255, Colonoscopy, flexible; diagnostic, including ? collection of [...] (additional time may ? be reported with 45834, as appropriate) Diagnosis Code(s): ? --- Professional --- ? Z12.11, Encounter for screening for malignant ? neoplasm of colon ? K64.8, Other hemorrhoids ? K57.30, Diverticulosis of large intestine without ? perforation or abscess without bleeding CPT copyright 2021 [employer]. All rights reserved. The codes documented in this report are preliminary and upon contestant coordinator review may be revised to meet current [...] Recommendation: - [facility] colon[facility] in 10 [facility]. - High fiber diet Procedure Code(s): --- Professional --- 66353, Colonoscopy, flexible; diagnostic, including collection of specimen(s) by brushing or washing, when performed (separate procedure) G0500, Moderate sedation services provided by the same physician or other qualified health pet care associate performing a gastrointestinal endoscopic service that sedation supports, requiring the presence of an independent trained observer to assist in the monitoring of the patient's level of consciousness and physiological status; initial 15 minutes of intra-service time; patient age 5 years or older (additional time may be reported with 74956, as appropriate) Diagnosis Code(s): --- Professional --- Z12.11, Encounter for screening for malignant neoplasm of colon K64.8, Other hemorrhoids K57.30, Diverticulosis of large intestine without perforation or abscess without bleeding CPT copyright 2021 [employer]. All rights reserved. The codes documented in this report are preliminary and upon contestant coordinator review may be revised to meet current compliance requirements. Attending Participation: MD Camila De Oliveira MD 08/05/2023 10:14:45 AM This report has been signed electronically. Number of Addenda: 0 Note Initiated On: 08/05/2023 9:40 AM Camila Perkins MD DIGESTIVE CARE Performing Organization Address City/State/[facility] Co de Phone Number GI ([facility]) [place], [place] * Surgical Path (07/06/2023 11:54 AM CDT) Case Report Surgical Pathology ?Case: [id number] ? Authorizing Provider: ??Kurt Langley MD ?Collected: ? 07/06/2023 1154 ? Ordering Location: ? [facility] ? Received: ?07/06/2023 1932 ? [facility] ? Pathologist: ? Mayelin Kendrick MD ? Specimen: ?Leg, left, lower posterior; suture 12 o'clock ? 07/09/2023 10:42 AM [facility] FINAL DIAGNOSIS A. Skin, Leg, left, lower posterior, re-excision : Central biopsy site changes, narrowly excised, negative for residual atypical junctional melanocytic proliferation 07/09/2023 10:42 AM [facility] Clinical Information lesion Per Dr. Langley's note on 07/06/23, this is a re-excision of an atypical junctional melanocytic proliferation ([id number]). 07/09/2023 10:42 AM [facility] Microscopic Description Microscopic examination is performed. 07/09/2023 10:42 AM [facility] Gross Description A: The specimen is [...] 6:00 4. 6:00 tip. 07/09/2023 10:42 AM [facility] Embedded Images 07/09/2023 10:42 AM [facility] Tissue SKIN OF KNEE AND/OR LEG AND/OR ANKLE / Unknown Non-blood Collection / Unknown 07/06/2023 11:54 AM CDT 07/06/2023 7:32 PM CDT Comment:per standing orderJo de De Luna, [facility] 07/06/2023, 11:50 AM Kurt Langley MD LAB PATHOLOGY Performing Organization Address [facility]/ZIP Co de Phone Number [address] [address], [facility] * MAMMOGRAM SC (05/20/2023) Anatomical Region Laterality Modality Other Princess Mckeon MD DUMMY/OTHER/AR * (ABNORMAL) Lipid Panel & Direct LDL (if Needed) (03/06/2023 1:57 PM [employer]) Cholesterol 240(H) 0 - 199 mg/dL 03/06/2023 8:41 PM [employer] [facility] Triglyceride 91 <=149 mg/dL 03/06/2023 8:41 PM [employer] [facility] HDL Cholesterol 80 >=40 mg/dL 03/06/2023 8:41 PM [employer] [facility] LDL, Calculated 142(H) <130 mg/dL 03/06/2023 8:41 PM [employer] [facility] Non HDL Chol, Calculated 160(H) <=159 mg/dL 03/06/2023 8:41 PM [employer] [facility] Cholesterol/HDL Ratio 3.0 <=5.0 03/06/2023 8:41 PM [employer] [facility] Hours Fasting 2.0 8 - 12 Hours 03/06/2023 8:41 PM [employer] [facility] Blood Venipuncture / Unknown 03/06/2023 1:57 PM [employer] 03/06/2023 1:57 PM [employer] Princess Mckeon MD LAB_1 Performing Organization Address City/[facility]/ZIP Co de Phone Number [facility] [address] [place] [address], [facility] [address] [place] [address] [phone] * DEXA Bone Density Spine/Hip (07/19/2018 11:35 AM CDT) Anatomical Region Laterality Modality Lower Extremity, Spine, Hip, L-Spine Radiographic Imaging Narrative 07/20/2018 2:42 PM CDT CLINIC DXA REPORT Patient Name: ??Carolynn Arvizu [place]: ??Wilber Galindo MD Densitometer: ??AccuDraft Discovery W (S/N [id number]) [id number] BONE1 OSTEOPOROSIS RISK FACTORS FROM PATIENT QUESTIONNAIRE: ?? 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 BONE MINERAL DENSITY: Lumbar Spine Vertebrae Included: L1;L2;L3;L4 Bone Mineral Density (gm/cm2): 1.115 T-Score: 0.6 Z-Score: 2.1 Total Hip Bone Mineral Density (gm/cm2): 0.951(L) T-Score: 0.1 Z-Score: 1.1 Femoral Neck Bone Mineral Density (gm/cm2): 0.775 T-Score: -0.7 Z-Score: 0.7 FRAX % % Fracture risk is based on bone density, age, ethnicity, and other BMD-independent risk factors noted from the questionnaire and the FRAX score, if available. ??See different fracture risk categories below under definitions. ASSESSMENT: 1: ?? Based on the lowest T score at the femoral neck the diagnosis is normal bone density. 2: ?? Fracture risk assessment: ?? This patient is at low 10 year future fracture risk. RECOMMENDATIONS: 1: ??Recommend adequate calcium and vitamin D intake 2: ??Consider repeat bone density in 10 years unless factors affecting bone health change. Definitions (T-Score = Standard deviations above/below mean peak adult) (Z-Score = Standard deviations above/below mean age/sex-matched peers) ISCD Standards: ??For a more accurate fracture risk assessment, reference data is used for all ethnic groups and the 1/3 region is reported for the forearm. WHO DEFINITIONS: Normal BMD: T-score ? -1.0 Osteopenia: T-score between -1.0 and -2.5 Osteoporosis: T-score ? -2.5 FRAX Score : ??The FRAX?? algorithms give the 10-year probability of fracture. The output is a 10-year probability of hip fracture and the 10-year probability of a major osteoporotic fracture (clinical spine, forearm, hip or shoulder fracture). ?? The FRAX score takes into account the bone density, but also age, gender, weight, height, previous fracture, parental hip fracture, smoking status, glucocorticoid intake, history of RA, secondary osteoporosis, and high alcohol intake in determining fracture risk in patients with osteopenia and osteoporosis. FRAX and Fracture Risk Categories in terms of major osteoporotic fracture risk (clinical spine, forearm, hip, or shoulder): < 10% ?= ?low fracture risk ? 10% and <15% ?= ?mildly increased fracture risk ? 15% and <20% ?= ?moderately increased fracture risk ? 20% and <30% ?= ?high fracture risk ? 30% ?= ?very high fracture risk A clinician may consider FDA-approved medical therapies in postmenopausal women and men aged 50 years and older, if one or more of the following is present (clinical correlation required and therapy may not always be indicated): 1. ??The patient has a hip or vertebral (clinical or morphometric) fracture. 2. ??T-score ? -2.5 at the femoral neck, hip, or spine after appropriate evaluation to exclude secondary causes. 3. ??Low bone mass (T-score between -1.0 and -2.5 at the femoral neck, hip or spine) and a 10-year probability of a hip fracture ? 3% or a 10-year probability of a major osteoporosis-related fracture ? 20% based on the FRAX scores. 4. ??Clinicians judgment and/or patient preferences may result in a decision to patients with 10-year fracture probabilities above or below these levels. Princess Mckeon MD RAD DEXA * Pap Smear (04/07/2018 11:51 AM [employer]) 04/07/2018 11:5 1 AM [employer] Narrative JAMSHID ONEAL - 04/27/2018 7:16 AM [employer] FINAL GYNECOLOGICAL CYTOLOGY REPORT Pathology #: [id number] ?Date Obtained: 04/07/2018 ? Date Received: 04/08/2018 INTERPRETATION/RESULTS: Negative for Intraepithelial Lesion or Malignancy. SPECIMEN ADEQUACY: Satisfactory for Evaluation. ??Endocervical cells/transformation zone component present. Verified on 04/27/2018 ??by GELY THOMPSON MD (electronic signature) CLINICAL NOTES: ?Abnormal bleeding: No, LMP: na, Menstrual status: Post ?Menopausal, Current form of therapy: None apply, Hx of abnormal ?pap/ESTHETICIAN SPA cancer LIQUID BASED PAP SMEAR SPECIMEN TYPE: ?ROUTINE CERVICAL PAP TEST PLEASE NOTE: The pap smear is a screening test designed to aid in the detection of cervical cancer and its precursor lesions. It is not a diagnostic procedure and should not be used as the sole means of detecting cervical cancer. Both false-positive and false-negative reports may occur. 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
--- NOTE | 2023-09-13 15:09 | ED.GENADULT ---
HPI - General Adult General Chief complaint: Laceration/Wound Stated complaint: Sliced left knife thumb Time Seen by Provider: 09/13/23 14:34 Source: patient Mode of arrival: ambulatory Limitations: no limitations History of Present Illness HPI narrative: 68-year-old female coming in today with a laceration of her thumb that she suffered home while using an [employer] knife to cut cardboard. Denies any other injuries. Last tetanus was in 2019. Related Data Allergies Allergy/AdvReac Type Severity Reaction Status Date / Time morphine Allergy Verified 09/13/23 14:39 Review of Systems Status of ROS: Reports: 6 or more systems reviewed and unremarkable except as noted in History and below [facility] Social History Smoking Status: Never smoker How often do you have a drink containing alcohol: 2-3 times a week How many standard drinks containing alcohol do you have on a typical day: 1 or 2 AUDIT-C Alcohol total score: 3 Non-prescribed substance use: denies use Exam Narrative: Exam Narrative: Well-nourished well-developed patient in no acute distress. Alert and oriented. Answers questions appropriately. Mood and affect are appropriate. Thoughts are goal oriented and rational. No tangential or magical thinking noted. Patient speaks in full sentences without needing to catch her breath. HEENT: Normocephalic atraumatic. Pupils are equally round reactive to light. Extraocular muscles are intact. Conjunctivae are moist without any icterus noted. Moist mucous membranes. Extremities: Patient has approximately 2 cm laceration that starts on the dorsal surface of the thumb just proximal to the nail over the knuckle. The laceration extends through the dermis into the subcutaneous tissue. There is no bone or tendon is visible. She has full range of motion flexion extension of the thumb at both joints. Const: Vital Signs, click to edit/add: Vital Signs - 24 hr 09/13/23 14:36 Temperature 97.2 F L Pulse Rate [Pulse Oximeter] 86 Respiratory Rate 16 Blood Pressure [Ri ght Upper Arm] 156/97 H Pulse Oximetry 98 Oxygen Delivery Me thod Room Air Course Course ED Course: Thumb was clean the usual sterile manner in a digital block was done with lidocaine. Six sutures with 5 0 Ethilon were placed without complication. A splint was placed on the volar surface of the thumb to keep it from bending in the thumb was dressed per nursing. Vital Signs Vital signs: Initial Vital Signs Temperature 97.2 F L 09/13/23 14:36 Temperature Source Temporal Artery Scan 09/13/23 14:36 Pulse Rate 86 09/13/23 14:36 Respiratory Rate 16 09/13/23 14:36 Blood Pressure 156/97 H 09/13/23 14:36 Blood Pressure Mean 116 H 09/13/23 14:36 Blood Pressure Position Sitting 09/13/23 14:36 Pulse Oximetry 98 09/13/23 14:36 Oxygen Delivery Method Room Air 09/13/23 14:36 Vital Signs Temperature 97.2 F L 09/13/23 14:36 Pulse Rate 86 09/13/23 14:36 Respiratory Rate 16 09/13/23 14:36 Blood Pressure 156/97 H 09/13/23 14:36 Pulse Oximetry 98 09/13/23 14:36 Oxygen Delivery Method Room Air 09/13/23 14:36 Temperature 97.2 F L 09/13/23 14:36 Pulse Rate 86 09/13/23 14:36 Respiratory Rate 16 09/13/23 14:36 Blood Pressure 156/97 H 09/13/23 14:36 Pulse Oximetry 98 09/13/23 14:36 Oxygen Delivery Method Room Air 09/13/23 14:36 Medications Administered Medications: Discontinued Medications Generic Name Dose Route Start Last Admin Trade Name Freq PRN Reason Stop Dose Admin Lidocaine HCl 20 ml 09/13/23 14:36 09/13/23 14:50 Lidocaine Hcl 2 % Multidose 20 Ml Vial INJECTION 09/13/23 14:37 20 ml ONCE ONE Administration Medical Decision Making [facility] Narrative Medical decision making narrative: 68-year-old female with a laceration of the thumb treated per above. We discussed wound hygiene, signs and symptoms of infection, suture removal and reasons to return for follow-up. Discharge Plan Discharge Clinical Impression: Laceration Patient Disposition: Home, Self-Care Condition: Improved Additional Instructions: Keep some clean and dry. Okay to shower like he normally would but avoid soaking the thumb such as taking baths or going swimming. Avoid doing dishes. Wear a glove if you are out in the garden or doing anything that would get your hands dirty. Suture should come out in approximately 1 week with your primary care provider. Watch for signs of infection which include redness of the thumb that spreads into the hand, this occurs see your doctor right away or return to the ER. Change dressing once daily. Follow Up/Referrals: Provider,Not a Local [Primary Care Provider] - Stand Alone Forms: [employer] Info Instructions
== END 2023-09-13 15:25 | disposition home or self-care (01) ==
PROVIDERS: Emergency Provider Family Medicine
DX: S61.012A Laceration without foreign body of left thumb without damage to nail, initial encounter (principal); W26.0XXA Contact with knife, initial encounter
CPT/HCPCS: 12001; 99283; 99284